=== PATIENT | female | born 1995 | race Caucasian/White ===

== ENCOUNTER → 2019-06-23 | Day surgery (SDC) | payer OTHER ==
[~2019-06-23] MED LIST: CYCL10TA2 PO; DICY10SO2 PO; FEXO180T16 PO; FLUT9.9S NS; HYDR-2765 PO; HYDROmorphone 2 MG/ML VIAL IV PRN; INSU100I13 SQ; INSU100I17 SQ; INSULIN LISPRO 300 UNITS/3 ML VIAL. SQ ONE; IV RINGERS,LACTATED 1000ML 1,000 ML IV SCH; LIDOCAINE 1% PF 2 ML VIAL. ID PRN; LISI-338 PO; LORA0.5T96 PO; MEDR10TA3 PO; MELO15TA23 PO; METF10007 PO; MORPHINE SULFATE 2 MG/ML VIAL. IV PRN; NORE-122 PO; NORT25CA PO; OLOP5DRO13 OP; ONDANSETRON PF 4 MG/2 ML VIAL. IV PRN; PANT20TA2 PO; PREG75CA PO; PROCHLORPERAZINE 10 MG/2 ML VIAL. IV PRN; PROPOFOL 20 ML IV ONE; SUMA100T4 PO; fentaNYL PF VIAL 100 MCG/2 ML VIAL IV PRN
[2019-06-23 11:43] VITALS: BP 150/81
--- NOTE | 2019-06-24 17:07 | PATHOLOGY ---
[facility] Accession Number: [id number] . 01 Material submitted: . PART A: small bowel - SMALL BOWEL BX PART B: stomach - GASTRIC ANTRUM-BODY BX PART C: esophagus - DISTAL ESOPHAGUS BX. Modifiers: distal PART D: ileum - TERMINAL ILEUM BX PART E: colon - RIGHT COLON BX. Modifiers: right PART F: colon - LEFT COLON BX. Modifiers: left . 01 Clinical history: . ABD pain . 02 Diagnosis: A. Small bowel biopsies: - No significant pathologic abnormalities. . B. Gastric biopsies, gastric antrum and gastric body: - Chronic gastritis, mild. . C. Esophageal biopsies, distal esophagus: - Segments of hyperplastic squamous esophageal mucosa, esophagogastric mucosa, and gastric mucosa showing chronic inflammation. . D. Terminal ileum biopsy: - No significant pathologic abnormalities. . E. Colon biopsies, right colon: - No significant pathologic abnormalities. . F. Colon biopsies, left colon: - No significant pathologic abnormalities. (JPM:[facility] 06/24/2019) [facility] 06/24/2019 0919 Local . 02 Comment: Sections of the small bowel biopsy reveal segments of duodenal and small intestine mucosa. Where best oriented, the mucosal villi show no sprue-like changes or significant inflammatory changes. . Sections of the gastric biopsy reveal segments of gastric antral and gastric body mucosa showing congestion and mild chronic inflammation. A properly controlled immunoperoxidase stain for Helicobacter is negative for Helicobacter organisms. . Sections of the distal esophageal biopsy reveal segments of mildly hyperplastic squamous esophageal mucosa, esophagogastric mucosa, and gastric mucosa showing mild to moderate chronic inflammation. The findings are consistent with reflux esophagitis. There is no evidence of Park's change, dysplasia, or malignancy. . Sections of the terminal ileum biopsy reveal a segment of small intestine mucosa. Where best oriented, the mucosal villi show no sprue-like changes or significant inflammatory changes. . Sections of the right colon and left colon biopsies appear similar and reveal segments of colonic mucosa containing a few mucosal-associated lymphoid aggregates. There is no evidence of a chronic destructive colitis, lymphocytic colitis, or collagenous colitis. (JPM:[facility] 06/24/2019) . Special stain performed: Immunoperoxidase for Helicobacter on B1. . 02 Electronically signed: . Kash Mims MD, Pathologist NPI- [id number] . 01 Gross description: . A. The specimen is received in formalin, labeled "Dillon, Santa, small bowel BX" and consists of multiple fragments of linton tissue measuring 1.1 x 0.5 x 0.2 cm in aggregate which are entirely submitted in A1. . B. The specimen is received in formalin, labeled " Dillon, Santa, gastric antrum/body BX" and consists of 4 fragments of linton tissue measuring 0.8 x 0.6 x 0.2 cm in aggregate which are entirely submitted in B1. . C. The specimen is received in formalin, labeled " Dillon, Santa, distal esophagus BX" and consists of 3 fragments of pink-linton tissue measuring between 0.2 x 0.2 cm and 0.3 x 0.2 cm which are entirely submitted in C1. . D. The specimen is received in formalin, labeled " Dillon, Santa, terminal ileum BX" and consists of a fragment of linton tissue measuring 0.3 x 0.3 cm which is entirely submitted in D1. . E. The specimen is received in formalin, labeled " Dillon, Santa, right colon BX" and consists of multiple fragments of linton tissue measuring 0.9 x 0.9 x 0.2 cm in aggregate which are entirely submitted in E1. . F. The specimen is received in formalin, labeled " Dillon, Santa, left colon BX" and consists of multiple fragments of linton tissue measuring 1.1 x 0.5 x 0.2 cm in aggregate which are entirely submitted in F1. (SDY; 06/23/2019) SYU/SYU 06/23/2019 1645 Local . 02 Pathologist provided ICD-10: K29.50, K20.8, R10.9 . 02 CPT . 214519, 829215, 439732, 082773, 918047, 196559, [id number] Specimen Comment: A courtesy copy of this report has been sent to [phone] Specimen Comment: Report sent to Performed at: [address] [facility], [place] [id number] MD Ayad Ayers MD Phone: [phone] Performed at: 02 [facility] [address], [place] [id number] MD Kash Mims MD Phone: [phone]
== END ==
LOC: ENDOS 09:48
PROVIDERS: ATTEND Internal Medicine Gastroenterology
DX: K62.5 Hemorrhage of anus and rectum (principal); K21.0 Gastro-esophageal reflux disease with esophagitis; K29.50 Unspecified chronic gastritis without bleeding; K52.9 Noninfective gastroenteritis and colitis, unspecified; D50.9 Iron deficiency anemia, unspecified; K44.9 Diaphragmatic hernia without obstruction or gangrene; K64.0 First degree hemorrhoids; E11.9 Type 2 diabetes mellitus without complications; F15.90 Other stimulant use, unspecified, uncomplicated; F17.210 Nicotine dependence, cigarettes, uncomplicated; Z88.8 Allergy status to other drugs, medicaments and biological substances; Z72.89 Other problems related to lifestyle; Z79.84 Long term (current) use of oral hypoglycemic drugs; Z98.890 Other specified postprocedural states
CPT/HCPCS: 43239; 45380; 82962; 88305; 88342; J2704; 45378

== ENCOUNTER → 2019-09-24 | Outpatient (CLI) | payer OTHER ==
[2019-06-23 11:43] VITALS: BP 150/81
[~2019-09-24] MED LIST changes: -HYDROmorphone 2 MG/ML VIAL IV PRN; +INSU300I SQ; -INSULIN LISPRO 300 UNITS/3 ML VIAL. SQ ONE; -IV RINGERS,LACTATED 1000ML 1,000 ML IV SCH; -LIDOCAINE 1% PF 2 ML VIAL. ID PRN; -MORPHINE SULFATE 2 MG/ML VIAL. IV PRN; -ONDANSETRON PF 4 MG/2 ML VIAL. IV PRN; +PREG-9 PO; +PREG100C PO; -PREG75CA PO; -PROCHLORPERAZINE 10 MG/2 ML VIAL. IV PRN; -PROPOFOL 20 ML IV ONE; -fentaNYL PF VIAL 100 MCG/2 ML VIAL IV PRN
--- NOTE | 2019-09-24 13:17 | PAIN ---
DATE OF SERVICE: INITIAL CONSULTATION FOR PAIN CLINIC CHIEF COMPLAINT: Neck and right upper extremity pain. HISTORY OF PRESENT ILLNESS: This is a 24-year-old female who presents with history of pain in the base of the neck and shoulders, right greater than left with radiating pain in the right arm causing numbness and tingling, its gone on for about a 6 years, worse over the past 1 year, not result of any specific injury or action that she is aware of. It has been getting worse with time. The patient reports radiating pain in the upper extremities with numbness and dropping items from the right hand, described as constant, sharp, stabbing, throbbing, shooting in the shoulder and arm, some on the left, mostly on the right side with cramping and aching sensation in the base of neck and upper back. The patient reports it is getting worse with time. Reports it awakens her from sleep at least twice a night, does not affect her bowel or bladder control, but can affect her ability to walk with a loss of balance from the arms aching. The patient reports dropping items again with the right hand more than the left. No overt motor loss, however. The patient has had physical therapy, which was not significantly helpful about 6 months ago, she believes at an outside facility. She is currently taking meloxicam, which was not decreasing the pain significantly. The patient rates her disability from 0-10, 10 the worst, is a 5 with family home responsibilities, recreation, occupation, 0 with social activity and self-care, 4 with sexual behavior, 2 with life support activities. The patient did have a MRI scan. We have requested the results from this from outside facility, which is not available at time of this dictation. PAST MEDICAL HISTORY: Significant for type 1 diabetes, legally blind, hypertension, gastritis, tachycardia, frequent UTIs, obesity, polycystic ovary disease, neuropathy. PREVIOUS SURGERY: Includes ovarian cyst resection, cholecystectomy and tonsillectomy. CURRENT MEDICATIONS: Include insulin, lisinopril, meloxicam, metformin, olopatadine, nortriptyline, Lantus insulin, cyclobenzaprine, dicyclomine, fexofenadine, fluticasone spray, hydrocodone, pregabalin, sumatriptan, medroxyprogesterone and Protonix. ALLERGIES: THE PATIENT IS ALLERGIC TO ATORVASTATIN, MILK AND COCONUT. FAMILY HISTORY: Significant for insulin-dependent diabetes. SOCIAL HISTORY: The patient drinks alcohol very rarely. Does not use any illegal, illicit or recreational drugs. Smokes less than a pack of cigarettes for the past 2 years. He is and lives with her spouse who accompanied her to visit today. The patient is currently not working and reports she is on disability, but not related to her current pain issue. REVIEW OF SYSTEMS: The patient's review of systems is positive for those items mentioned in history of present illness. All systems reviewed and otherwise negative. It is complete, full and well documented on the patient's chart. PHYSICAL EXAMINATION: VITAL SIGNS: The patient's blood pressure is 144/99, pulse 105, respirations 16, temperature 98.3 degrees Fahrenheit, height is 5 feet 8 inches, weight is 295 pounds. GENERAL: The patient is awake, alert, oriented, appropriate, very pleasant demeanor. Again, the patient is accompanied by her . HEENT: Shows normocephalic, atraumatic. The patient wears eyeglasses. Extraocular movements are intact and symmetrical. Oral cavity shows mucous membranes moist and pink. Dentition is intact. NECK: Shows anterior throat supple without palpable lymphadenopathy noted. Swallow reflex symmetrical. CHEST: Shows normal on inspection. Breath sounds clear to auscultation bilaterally. HEART: Shows S1, S2 clear. No murmurs auscultated. ABDOMEN: Soft, nontender, nondistended. No palpable organomegaly is noted. There is no rebound or guarding demonstrated. BACK: Shows spine grossly in the midline, normal-appearing cervical lordotic curvature, some minor increase in thoracic kyphosis and some moderate decreased lordotic curvature of the lumbar spine. Lumbar paraspinous muscle shows symmetrical on inspection, on palpation shows some moderate tenderness diffusely bilaterally, but diffusely without significant radiation. The patient shows good rotational motion of lumbar spine, both laterally as well as extension and flexion without significant increase in pain. Cervical paraspinous muscle shows symmetrical on inspection as well, but with palpation shows some moderate tenderness in the inferior aspect of the cervical paraspinous muscles. Good rotational motion both laterally greater than 45 degrees, close to 90 degrees as well as full extension, full forward flexion without significant increase in pain, slightly more tender with extension only. The patient shows full forward flexion without difficulty, chin to chest. EXTREMITIES: Upper extremities showed deep tendon reflexes at 2+ in the biceps and triceps tendons. Motor exam is approximately 4 on a scale of 5 on the right with distribution estimator strength, bicep and tricep flexion 5/5 on the left. Peripheral pulses are 2+ radial. No peripheral edema is noted. Upper extremities are warm and dry to touch, equal in color and appearance. Shoulder shrug is strong and intact without loss of strength on resistance, but with some pain reported in the right shoulder and bicep with resistance. This is true with abduction of shoulder to 90 degrees with resistance, but without loss of strength on resistance. SKIN: Shows warm and dry, good turgor. No edema. No sores, rashes, or bruising throughout. IMPRESSION: 1. This is a 24-year-old female with long history of neck, right greater than left, upper extremity pain in a radicular fashion following a C6-C7 dermatomal distribution. 2. Type 1 diabetes. 3. Hypertension. 4. Obesity. 5. Legal blindness. 6. Polycystic ovaries. PLAN: Options were discussed with the patient including conservative medical managements, physical therapies and interventional techniques. She has done physical therapy, has had medication management in the past. She would like to pursue interventional techniques. We discussed a cervical epidural steroid injection using description as well as anatomical models to describe the procedure. The patient will wait for preauthorization with her insurance provider as she has a clinical right-sided C6-C7 dermatomal distribution, cervical radiculopathy. We will plan on translaminar approach C6-C7 level cervical epidural steroid injection. In the meantime, the patient will continue with stretching and strengthening exercises, heat and stretching applications and will follow up for cervical epidural steroid injection as scheduled. ABBIE MACKENZIE MD DR: JAVIER/yossi JOB#: [id number] / [id number]
== END | disposition home or self-care (01) ==
LOC: PNCL 10:12
PROVIDERS: ATTEND Anesthesiology
DX: M79.601 Pain in right arm (principal); E10.9 Type 1 diabetes mellitus without complications; I10 Essential (primary) hypertension; E28.2 Polycystic ovarian syndrome; H54.8 Legal blindness, as defined in USA; E66.9 Obesity, unspecified
CPT/HCPCS: G0463-25

== ENCOUNTER → 2019-10-29 | Outpatient (CLI) | payer OTHER ==
[2019-06-23 11:43] VITALS: BP 150/81
[~2019-10-29] MED LIST changes: +IOHEXOL 180 MG/ML 10 ML VIAL. ONE; +methylPREDNISolone ACETATE 40 MG/ML VIAL. ONE; +methylPREDNISolone ACETATE 80 MG/ML VIAL. ONE
--- NOTE | 2019-10-29 10:03 | PAIN ---
DATE OF SERVICE: 10/29/2019 PROGRESS NOTE FOR PAIN CLINIC DIAGNOSIS: Cervical radiculopathy with cervical degenerative disk disease. HISTORY OF PRESENT ILLNESS: The patient is a 24-year-old female, who returns for followup status post preauthorization for cervical epidural steroid injection. She has obtained this now and would like to proceed. Still pain in the base of the neck and shoulders, slightly more on the right greater than left, but present bilaterally. The patient reports it is increased with activity, weight lifting, reaching overhead with her arms. The patient reports the pain is a 9 on a scale of 10 at its worst over the past week, 8 on an average, 7 at its least and is an 8 today. The patient reports it is sharp and tight, shooting in the shoulders and upper extremities, tingling, cramping and stabbing with radiating pain. It is becoming more constant with activity in the base of the shoulders, into the biceps and into the forearms and into the hands, more on the right than the left, with some tingling and numbness in the hands as well. The patient reports no loss of motor function, but significant dropping of items with repetitive motions with the right hand, especially. The patient reports it awakens her from sleep occasionally, but not every night, maybe once every 6 hours. PHYSICAL EXAMINATION: VITAL SIGNS: The patient's blood pressure 148/97, pulse 109, respirations 18, temperature is 98.2 degrees Fahrenheit, height is 5 feet 8 inches, weight is 298 pounds. GENERAL: The patient is awake, alert, oriented, appropriate, very pleasant demeanor. HEENT: Shows normocephalic, atraumatic. Extraocular movements are intact and symmetrical. Oral cavity: Mucous membranes moist and pink; dentition is intact. NECK: Shows anterior throat supple without palpable lymphadenopathy noted. Swallow reflex symmetrical. CHEST: Shows normal on inspection. Breath sounds are clear bilaterally. HEART: Shows S1, S2 clear. No murmurs auscultated. ABDOMEN: Obese, soft, nontender, nondistended. BACK: Shows spine grossly in the midline. Cervical paraspinous musculature shows symmetrical on inspection with normal cervical lordotic curvature, with palpation shows some moderate tenderness diffusely bilaterally in the cervical paraspinous muscles, somewhat more on the right than the left, but present bilaterally with some moderate tenderness in the superior medial trapezius as well, but again without trigger points or radiation. The patient shows full rotational motion of the cervical spine, both laterally as well as extension and flexion without significant difficulty. EXTREMITIES: The patient's upper extremities show deep tendon reflexes at 2+ in the biceps and triceps tendons. Motor exam is approximately 4 on a scale of 5 on the right, 5/5 on the left with stock preparer strength, bicep and tricep flexion. Peripheral pulses are 2+ radial. No peripheral edema is noted. Options were discussed with the patient. The patient's old chart was reviewed as her current medication regimen updated. Current review of systems updated today as well, and we will proceed with a cervical epidural steroid injection today with fluoroscopic guidance. Risks were again discussed including, but not limited to bleeding, infection, possibility of epidural hematoma, subsequent neurological compromise, dural puncture, headaches, spinal cord and/or nerve damage, side effects of steroid medication and poor results regarding pain control. The patient understands and wishes to proceed. The patient will return to the clinic in approximately 2 weeks for followup. She was counseled as to the return appointment, activity level and side effects to be aware of. DIAGNOSIS: Cervical radiculopathy with cervical degenerative disk disease. PROCEDURE: Cervical epidural steroid injection, translaminar approach, C6-C7 level, using C-arm fluoroscopic guidance under sterile prep and drape using local anesthetic. MEDICATIONS INJECTED: A total of 120 mg of Depo-Medrol plus 5 mL of preservative-free normal saline and 2 mL of contrast. CONDITION AT DISCHARGE: Stable. The patient tolerated the procedure well, had no complications. ABBIE MACKENZIE MD DR: JAVIER/yossi JOB#: [id number] / [id number]
== END ==
LOC: PNCL 08:18
PROVIDERS: ATTEND Anesthesiology
DX: M50.123 Cervical disc disorder at C6-C7 level with radiculopathy (principal)
CPT/HCPCS: 62321; J1030; J1040; Q9965